=== PATIENT | male | born 1930 | race Caucasian/White ===

== ENCOUNTER → 2017-11-27 | Outpatient (CLI) | payer MEDICARE ==
[2017-11-27 14:11] LABS: Basophils % (A) 0 %; Eosinophils # (A) 0.1 k/uL (0-0.7); Eosinophils % (A) 1 %; HCT 44.5 % (39.0-53.0); Lymphocytes # (A) 1.3 k/uL (1.0-4.8); Lymphocytes % (A) 14 %; MCH 28.8 pg (25.0-35.0); MCHC 31.5 g/dL (31.0-37.0); MCV 91.5 fL (80.0-100.0); Mean Platelet Volume 6.6; Monocytes # (A) 0.5 k/uL (0-1.0); Monocytes % (A) 5 %; Neutrophils # (A) 7.2 k/uL (1.3-7.7); Neutrophils % (A) 77 %; Platelet Count 182 k/uL (150-450); RBC 4.87 m/uL (4.30-5.90); RDW 14.5 % (11.5-15.5); WBC 9.3 k/uL (3.8-10.6)
[2017-11-27 14:50] LABS: Anion Gap 10 mmol/L; Blood Urea Nitrogen 33 mg/dL (9-20); Carbon Dioxide 35 mmol/L (22-30); Chloride 97 mmol/L (98-107); Glucose 116 mg/dL (74-99); Potassium 4.6 mmol/L (3.5-5.1); Sodium 142 mmol/L (137-145)
== END | disposition home or self-care (01) ==
LOC: LABPAT 13:28
PROVIDERS: ATTEND Urology
DX: Z01.818 Encounter for other preprocedural examination (principal); Z01.812 Encounter for preprocedural laboratory examination; I10 Essential (primary) hypertension; E78.00 Pure hypercholesterolemia, unspecified; N99.114 Postprocedural urethral stricture, male, unspecified
CPT/HCPCS: 36415; 80048; 85025; 93005

== ENCOUNTER 2017-12-01 08:31 | Day surgery (SDC) | payer MEDICARE ==
[2017-11-29 13:28] VITALS: BMI 29.5
[~2017-12-01 08:31] MED LIST: GENTAMICIN 120 MG in SODIUM CHLORIDE 0.9% 100 ML IVPB ONE; LACTATED RINGERS 1,000 ML IV SCH; ceFAZolin IN SWFI 2 GM/20 ML SYRINGE IVP ONE
[2017-12-01] MEDS ORDERED: LACTATED RINGERS 1,000 ML IV ONE (08:46)
[2017-12-01] MEDS ORDERED: LIDOCAINE 1% 20 ML VIAL (10MG/ML) FOR IV START INTRADERMA ONE (08:47)
[2017-12-01] MEDS ORDERED: ONDANSETRON 4 MG/2 ML VIAL IVP ONE (08:54)
[2017-12-01] MEDS ORDERED: DEXAMETHASONE SOD PHOS (MDV) 100 MG/10 ML VIAL IVP ONE (08:54)
[2017-12-01 11:17] VITALS: RESP 16; TEMP 97.1
[2017-12-01 13:03] VITALS: BP 142/64; PULSE 75
--- NOTE | 2017-12-01 13:08 | P.OP ---
Date of Procedure: 12/01/17 Preoperative Diagnosis: Urethral Strictures, Bladder Tumor Postoperative Diagnosis: Same Procedure(s) Performed: Cystoscopy, Direct Visual Internal Ureterotomy (DVIU), Transurethral Resection of Bladder Tumor (Small) Anesthesia: IMERA Surgeon: Andrea Maloney Estimated Blood Loss (ml): 5 IV fluids (ml): 600 Pathology: other (Bladder tumor) Condition: stable Disposition: PACU Indications for Procedure: He is an 87-year-old male who underwent a circumcision in 2013 for phimosis and balanitis. He recently developed gross hematuria, and cystoscopy has shown a right posterolateral bladder wall tumor. He will undergo transurethral resection soon, and following this he should be able to resume his anticoagulants. Cystoscopy revealed several urethral strictures, and he will thus undergo a DVIU at the time of bladder tumor resection. 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 Description of Procedure: The patient was taken to the operating room and placed in the dorsolithotomy position, with his legs supported in Jonathan stirrups. The external genitalia was prepped and draped sterilely. The Markos urethrotome was used to incise the urethra to 26-Georgian. The 0 lens was used to advance the visual urethrotome into the urethra. Several bulbous urethral strictures remained, measuring approximately 16 Georgian in caliber. The length of the strictures were approximately 2 cm. Using the half-yin blade, the strictures were incised at the 12 o'clock position. The incision was carried through the full-thickness of the strictures. It was then possible to advance the visual urethrotome into the bladder. 26-Georgian ACMI resectoscope sheath was introduced into the bladder under direct vision. The bladder was inspected. Both ureteral orifices were of normal anatomic location and configuration, and clear urine effluxed from both. The entire bladder was examined, revealing a 1.5 cm papillary tumor cephalad to the right ureteral orifice. No additional tumors were seen. The prostate was visually occluded, with a bilobar configuration. Using the cutting loop, the tumor was resected down to the muscle. Excellent hemostasis was attained. The resected tissue was saved and sent for pathologic examination. A 20-Georgian [place] catheter was inserted. The return was clear. The patient tolerated the procedure well. He was taken to the recovery room in stable condition.
== END 2017-12-01 14:02 | disposition home or self-care (01) ==
LOC: OR 08:31
PROVIDERS: ATTEND Urology
DX: N30.21 Other chronic cystitis with hematuria (principal); N99.114 Postprocedural urethral stricture, male, unspecified; N32.89 Other specified disorders of bladder; I48.91 Unspecified atrial fibrillation; E78.00 Pure hypercholesterolemia, unspecified; E78.5 Hyperlipidemia, unspecified; J44.9 Chronic obstructive pulmonary disease, unspecified; I50.9 Heart failure, unspecified; I25.10 Atherosclerotic heart disease of native coronary artery without angina pectoris; N18.3 Chronic kidney disease, stage 3 (moderate); I13.0 Hypertensive heart and chronic kidney disease with heart failure and stage 1 through stage 4 chronic kidney disease, or unspecified chronic kidney disease; I65.29 Occlusion and stenosis of unspecified carotid artery; Z87.891 Personal history of nicotine dependence; Z79.899 Other long term (current) drug therapy; Z95.2 Presence of prosthetic heart valve; Z80.42 Family history of malignant neoplasm of prostate
CPT/HCPCS: 52234; 52276; 88307; J2405; J1580; J1100; J0690